=== PATIENT | female | born 1975 | race American Indian/Alaskan Native ===

== ENCOUNTER 2017-01-02 01:29 | Emergency (ER) | payer BC ==
[2017-01-02 01:30] VITALS: BMI 38.0
[2017-01-02 01:57] VITALS: O2SAT 100
--- NOTE | 2017-01-02 02:35 | C.PDOC ---
History Of Present Illness A 41 y/o female presents to the ER c/o left frontal headache that began tonight. Patient describes the headache as pressure to the orbital area. Patient has been seen at [facility] and [place] last month and had gotten 2 MRI done. The last MRI done was 12/21/16 which unremarkable. Patient denies dizziness , nausea, vomiting, photophobia, change in vision, weakness or numbness of the upper extremities and face, aphasia, or any other complaints. Patient notes taking Excedrin with no relief. Chief Complaint (Nursing): Headache History Per: Patient History/Exam Limitations: no limitations Onset/Duration Of Symptoms: Hrs Current Symptoms Are (Timing): Still Present Severity: Mild Quality: Pressure Preceeding Symptoms: denies: Visual Disturbances Associated Symptoms: denies: Photophobia Additional History Per: Patient Past Medical History Reviewed: Historical Data, Nursing Documentation, Vital Signs Vital Signs: Last Vital Signs Temp 98.1 F 01/02/17 01:42 Pulse 93 H 01/02/17 01:42 Resp 18 01/02/17 01:42 BP 150/87 01/02/17 01:42 Pulse Ox 100 01/02/17 02:41 - Medical History PMH: HIV, HTN Denies: Chronic Kidney Disease Family History: States: Unknown Family Hx - Social History Hx Alcohol Use: No Hx Substance Use: No - Immunization History Hx Tetanus Toxoid Vaccination: No Hx Influenza Vaccination: No Hx Pneumococcal Vaccination: No Review Of Systems Eyes: Negative for: Vision Change, Other (Photophobia) Gastrointestinal: Negative for: Nausea, Vomiting Neurological: Positive for: Headache. Negative for: Weakness (Upper extremities or face), Numbness (Upper extremities or face), Dizziness, Other ( Aphasia) Physical Exam - Physical Exam Appears: Non-toxic, No Acute Distress, Other (Appears anxious) Skin: Warm, Dry Head: Atraumatic, Normacephalic Eye(s): bilateral: Normal Inspection, PERRL, EOMI Ear(s): Bilateral: Normal Nose: No Other (No allergies) Oral Mucosa: Moist Throat: Normal, No Exudate Neck: Normal ROM, Supple (no meningeal signs) Cardiovascular: Rhythm Regular Respiratory: Normal Breath Sounds Extremity: Bilateral: Atraumatic, Normal Color And Temperature Neurological/Psych: Oriented x3, Normal Speech, Normal Cognition, Normal Cranial Nerves, Normal Motor, Normal Sensation Gait: Steady ED Course And Treatment O2 Sat by Pulse Oximetry: 100 (RA) Pulse Ox Interpretation: Normal Progress Note: Pt reports improved headache after meds. Denies headache at this time. Pt is sleeping comfortably in ED in NAD, now awake speaking on the phone. Pt will be d/d home with RX and return precautions explained a d undertooa by pt Reassessment Condition: Improved Medical Decision Making Medical Decision Making: Impression: 41 y/o c/o left frontal headache that began tonight Plans: -Ultram -Valium -Naproxin -Reassess and disposition On reassessment, patient is resting comfortably, is tolerating PO, and pain has improved. Patient has no neurologic deficit, photophobia, rash, fever, or nuchal rigidity. Patient was instructed to follow up with physician/clinic in 1- 2 days. Disposition Counseled Patient/Family Regarding: Diagnosis, Need For Followup, Rx Given - Disposition Disposition: HOME/ ROUTINE Disposition Time: 03:10 Condition: STABLE Additional Instructions: Please take fioricet for pain May add advil for headache Increase PO fluids Return to ER if worse Prescriptions: Acetaminophen/Butalbital/Caf [Fioricet] 1 - 2 tab PO TID PRN #14 tab PRN Reason: Headache Instructions: Migraine Headache (ED) - Clinical Impression Clinical Impression: Headache, Migraine - Scribe Statement The provider has reviewed the documentation as recorded by the Scribmonserrat ren All medical record entries made by the Scribe were at my direction and personally dictated by me. I have reviewed the chart and agree that the record accurately reflects my personal performance of the history, physical exam, medical decision making, and the department course for this patient. I have also personally directed, reviewed, and agree with the discharge instructions and disposition.
[2017-01-02 03:22] VITALS: BP 103/66; PULSE 72; RESP 20; TEMP 97.6
== END 2017-01-02 03:22 | disposition home or self-care (01) ==
LOC: C.ER 01:29
DX: G43.909 Migraine, unspecified, not intractable, without status migrainosus (principal)